=== PATIENT | female | born 1975 | race Asian ===

== ENCOUNTER 2017-02-10 13:38 | Emergency (ER) | payer SELFPAY ==
[2017-02-10 13:44] VITALS: O2SAT 97
--- NOTE | 2017-02-10 14:19 | EDPHY ---
H & P Time Seen by Provider: 02/10/17 14:05 HPI/ROS: CHIEF COMPLAINT: Right shoulder pain post mechanical fall HISTORY OF PRESENT ILLNESS: 41-year-old female, Arabic speaking only complaining of acute right shoulder pain after she tripped and fell landing on her right shoulder this morning. Assistance of computer game tester used. She denies head injury. Denies syncope. Denies back pain. Denies chest pain. Denies dyspnea. Denies peripheral paresthesia, weakness, numbness. 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 PHYSICAL EXAM (Prior to examination, patient consented to physical exam, hands were washed and my usual and customary physical exam procedures followed) 1) GENERAL: Well-developed, well-nourished, alert and oriented. Appears to be in no acute distress. 2) HEAD: Normocephalic 3) HEENT: Pupils equal, round, reactive to light bilaterally. 4) LUNGS: Breathing comfortably. 5) MUSCULOSKELETAL: Abrasion to the posterior aspect of the right shoulder with associated tenderness to palpation anterior and posterior aspect of the shoulder no visible deformity no step-off. Reproducible pain with range of motion. Medial clavicle nontender. Remainder right upper extremity nontender. Soft compartments. 6) SKIN: abrasion 7) VASCULAR: pulses and cap refill present are brisk 8) NEUROLOGIC: Radial, ulnar, median nerve function intact with no deficits appreciated on exam DIFFERENTIAL DIAGNOSIS: in no particular order including but not limited to dislocation, fracture, sprain, compartment syndrome Procedure: Splint A sling splint was applied by ER retread technician. After application of the splint I returned and re-examined the patient. The splint was adequately immobilizing the joint and distal to the splint the patient's circulation and sensation were intact. Patient shows no signs of compartment syndrome. Was given orthopedic precautions. Smoking Status: Never smoked Constitutional: Initial Vital Signs Temperature (C) 36.8 C 02/10/17 13:39 Heart Rate 71 02/10/17 13:39 Respiratory Rate 18 02/10/17 13:39 Blood Pressure 101/62 02/10/17 13:39 O2 Sat (%) 97 02/10/17 13:39 O2 Delivery Mode Room Air Allergies/Adverse Reactions: No Known Allergies Allergy (Unverified 02/10/17 13:44) Home Medications: Medication Instructions Recorded NK [No Known Home Meds] 02/10/17 MDM/Departure - MDM Imaging Results: Imaging Impressions Shoulder X-Ray 02/10/17 14:13 Impression: Negative right shoulder radiographs. Images reviewed by myself - Depart Disposition: Home, Routine, Self-Care Clinical Impression: Sprain of right shoulder Qualifiers: Encounter type: initial encounter Shoulder sprain type: unspecified sprain Qualified Code(s): S43.401A - Unspecified sprain of right shoulder joint, initial encounter Condition: Good Instructions: Shoulder Sprain (ED) Additional Instructions: Return to the ER immediately if you experience discoloration, have worsening pain, numbness, tingling, or any other symptoms that concern you. If you received x-rays in the emergency department today, be advised, that ligameAdult Pain & Fever Control: We recommend Acetaminophen (Tylenol) and Ibuprofen (Motrin,Advil) for pain and fever control. When fever is high or pain severe, both drugs can be used at the same time, but at different intervals. Please note the time differences. Your dose is: Acetaminophen 650mg every 4 to 6 hours Ibuprofen 600mg every hours with food OR Note: do not take Acetaminophen with Hydrocodone (Vicodin, Lortab) or Oycodone (Percocet). These medications also contain Acetaminophen. No more than 3000mg of Acetaminophen should be taken in 24 hours (for an adult).ntous, tendon, muscular, and other non-bony injury cannot be fully ruled out. Try to keep your affected extremity elevated above the level of your chest, and keep cold packs on the affected area, for the next 48 hours. Referrals: Antwan Cruz MD [Medical Doctor] - 2-3 days, call for appt.
[2017-02-10 14:57] VITALS: BP 104/64; PULSE 70; RESP 16; TEMP 97.7
== END 2017-02-10 14:57 | disposition home or self-care (01) ==
DX: S43.401A Unspecified sprain of right shoulder joint, initial encounter (principal); W01.0XXA Fall on same level from slipping, tripping and stumbling without subsequent striking against object, initial encounter; Y99.8 Other external cause status; Y93.89 Activity, other specified